=== PATIENT | female | born 1980 | race American Indian/Alaskan Native ===

== ENCOUNTER 2024-03-04 15:17 | Emergency (ER) | payer BC ==
[~2024-03-04] VITALS: Ht 162.6 cm; Wt 79.4 kg
[2024-03-04 15:24] VITALS: BP_SYST 116; PULSE 84; RESP 18; TEMP 97.8; O2SAT 97
[2024-03-04 17:10] LABS: BASOPHILS % (AUTO) 0.5 % (0.0-2.0); EOSINOPHILS # (AUTO) 0.1 K/uL (0.0-0.4); EOSINOPHILS % (AUTO) 0.7 % (0.0-4.0); HEMATOCRIT 41.3 % (36-48); HEMOGLOBIN 14.6 g/dL (12.0-16.0); LYMPHOCYTES # (AUTO) 3.7 K/uL (1.0-5.5); LYMPHOCYTES % (AUTO) 37.5 % (20.5-51.5); MEAN CORPUSCULAR HEMOGLOBIN 30 pg (27-31); MEAN CORPUSCULAR HGB CONC 35 % (32-36); MEAN CORPUSCULAR VOLUME 84 fL (79.0-98.0); MONOCYTES # (AUTO) 0.4 K/uL (0.0-1.0); MONOCYTES % (AUTO) 4.2 % (1.7-9.3); NEUTROPHILS # (AUTO) 5.7 K/uL (1.8-7.7); NEUTROPHILS % (AUTO) 57.1 % (40.0-70.0); PLATELET COUNT (AUTO) 273 K/uL (130-430); RED BLOOD CELL COUNT(AUTO) 4.93 MIL/uL (4.2-6.2); WHITE BLOOD COUNT (AUTO) 9.9 K/uL (4.8-10.8)
[2024-03-04 17:29] LABS: ANION GAP 10 (5-15); CALCIUM 8.9 mg/dL (8.4-11.0); CARBON DIOXIDE 25 mmol/L (23-29); CHLORIDE 98 mmol/L (98-107); CREATININE 0.71 mg/dL (0.55-1.30); GFR AFRICAN AMERICAN 116 mL/min (>90); GFR NON AFRICAN-AMERICAN 95 mL/min (>90); GLUCOSE 190 mg/dL (74-106); POTASSIUM 3.2 mmol/L (3.5-5.1); SODIUM SERUM 133 mmol/L (136-145); UREA NITROGEN, BLOOD 12 mg/dL (8-21)
[2024-03-04] MEDS: KETOROLAC TROMETHAMINE 15 MG VIAL IVP ONE (17:30)
[2024-03-04] MEDS ORDERED: iohexoL 350 mgI/mL, 100 ML INFUS..BTL IV ONE (18:27)
[2024-03-04] MEDS: DIPHENHYDRAMINE INJ 50 MG/ML VIAL IVP ONE (18:57)
[2024-03-04] MEDS: POTASSIUM CHLORIDE 20 MEQ TABLET.ER PO ONE (19:25)
== END 2024-03-04 20:40 | disposition home or self-care (01) ==
LOC: SED 15:17
DX: M94.0 Chondrocostal junction syndrome [Tietze] (principal); R07.9 Chest pain, unspecified; E11.9 Type 2 diabetes mellitus without complications; I10 Essential (primary) hypertension; Z88.1 Allergy status to other antibiotic agents
CPT/HCPCS: 99285; 96374; 71275; 71045; 96375; 80048; 83880; 85025; 85379; 84484; 36415; 93005; Q9967; J1200; J1885